=== PATIENT | female | born 1950 | race Caucasian/White ===

== ENCOUNTER 2016-12-30 16:04 | Emergency (ER) | payer MEDICARE, SELFPAY ==
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
[2016-12-30] MEDS ORDERED: Diphtheria/Tetanus Toxoids,Adult (Td) 0.5 ML SDV IM ONE (17:29)
[2016-12-31 08:17] VITALS: BP 121/70
--- NOTE | 2017-01-01 08:11 | CR ---
DATE OF SERVICE: 12/30/16 CLINICAL DATA: fall LEFT LOWER LEG: No acute fracture or dislocation. No lytic or blastic bone lesions. [id number] [facility]
--- NOTE | 2017-01-01 08:13 | CR ---
DATE OF SERVICE: 12/30/16 CLINICAL DATA: fall PA CHEST AND RIGHT RIBS: The heart size is normal. The lungs are clear. No pneumothorax. No pleural effusions. No areas of consolidation. No displaced rib fractures. IMPRESSION: No acute abnormalities. [id number] [facility]
== END 2016-12-30 17:20 | disposition home or self-care (01) ==
LOC: LB.ED 16:04
DX: S20.211A Contusion of right front wall of thorax, initial encounter (principal); M79.605 Pain in left leg; F17.210 Nicotine dependence, cigarettes, uncomplicated; F41.9 Anxiety disorder, unspecified; Z88.0 Allergy status to penicillin; Z88.5 Allergy status to narcotic agent; Z88.8 Allergy status to other drugs, medicaments and biological substances; Z79.899 Other long term (current) drug therapy; Z90.710 Acquired absence of both cervix and uterus; Z98.890 Other specified postprocedural states; V19.9XXA Pedal cyclist (driver) (passenger) injured in unspecified traffic accident, initial encounter
CPT/HCPCS: 71101-RT; 73590-LT; 90471; 90714; 99283; 99284-25

== ENCOUNTER 2018-01-19 18:56 | Emergency (ER) | payer MEDICARE ==
[2018-01-19] MEDS ORDERED: Ciprofloxacin 500 MG Tab ONE (19:10)
--- NOTE | 2018-01-25 16:12 | EDM.PDOC ---
ED HPI GENERAL MEDICAL PROBLEM - General Chief Complaint: General Stated Complaint: DIARRHEA Time Seen by Provider: 01/19/18 20:00 Source of Information: Reports: Patient History Limitations: Reports: No Limitations - History of Present Illness INITIAL COMMENTS - FREE TEXT/NARRATIVE: This is a 67yo F here for abdominal discomfort and diarrhea. Patient denies any fever or chills or other complaints. She has had bouts of diarrhea frequently. No nausea, no vomiting, no other complaints. Onset: Gradual Duration: Day(s):, Intermittent Location: Reports: Abdomen - Related Data Allergies Allergy/AdvReac Type Severity Reaction Status Date / Time lorazepam [From Ativan] Allergy Anxiety Verified 12/31/16 07:37 morphine Allergy Nausea Verified 12/31/16 07:37 Penicillins Allergy Rash Verified 12/31/16 07:37 Home Meds: Home Meds Baclofen 10 mg PO DAILY 12/30/16 [History] Gabapentin [Neurontin] 300 mg PO DAILY 12/30/16 [History] Hydrochlorothiazide 25 mg PO DAILY 12/30/16 [History] Omeprazole 20 mg PO BID 12/30/16 [History] Quinapril [Accupril] 10 mg PO DAILY 12/30/16 [History] Venlafaxine HCl [Venlafaxine ER] 75 mg PO TID 12/30/16 [History] busPIRone [Buspar] 15 mg PO BID 12/30/16 [History] oxyCODONE HCl/Acetaminophen [oxyCODONE-Acetaminophen 10-325] 1 tab PO TID PRN [History] tiZANidine HCl [Tizanidine HCl] 4 mg PO DAILY 12/30/16 [History] traZODone 50 mg PO BEDTIME 12/30/16 [History] 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: Musculoskeletal History: Reports: Back Pain, Chronic Neurological History: Reports: Headaches, Chronic Psychiatric History: Reports: Anxiety - Infectious Disease History Infectious Disease History: Reports: Chicken Pox, Influenza, Measles, Mumps - Past Surgical History GI Surgical History: Reports: Colostomy Female Surgical History: Reports: Hysterectomy Neurological Surgical History: Reports: Lumbar Spine Musculoskeletal Surgical History: Reports: Other (See Below) Other Musculoskeletal Surgeries/Procedures:: back surgery Social & Family History - Family History Family Medical History: Noncontributory - Caffeine Use Caffeine Use: Reports: Coffee, Soda ED ROS GENERAL - Review of Systems Review Of Systems: ROS reveals no pertinent complaints other than HPI. ED EXAM, GENERAL - Physical Exam Exam: See Below Exam Limited By: No Limitations General Appearance: Alert, WD/WN, No Apparent Distress Ears: Normal External Exam Nose: Normal Inspection Throat/Mouth: Normal Inspection Head: Atraumatic, Normocephalic Neck: Normal Inspection Respiratory/Chest: No Respiratory Distress, Lungs Clear Cardiovascular: Normal Peripheral Pulses, Regular Rate, Rhythm GI/Abdominal: Soft, Non-Tender, No Distention, Abnormal Bowel Sounds ( hyperactive) Extremities: Normal Inspection Neurological: Alert, Oriented, CN II-XII Intact, Normal Reflexes, No Motor/ Sensory Deficits Course - Orders/Labs/Meds Meds: Medications Discontinued Medications Generic Name Dose Route Start Last Admin Trade Name Freq PRN Reason Stop Dose Admin Ciprofloxacin 3,000 mg 01/19/18 19:10 Ciprofloxacin Hcl .ROUTE 01/19/18 19:11 .STK-MED ONE Departure - Departure Time of Disposition: 21:00 Disposition: Home, Self-Care 01 Condition: Good Clinical Impression: Diarrhea Qualifiers: Diarrhea type: unspecified type Qualified Code(s): R19.7 - Diarrhea, unspecified - Discharge Information Forms: ED Department Discharge Additional Instructions: Take Cipro 500mg 2 times a day until gone. Take Metronidazole 500mg every 8 hours. Return to clinic Sunday if not feeling better. Counseled on supportive care and management. Discussed conservative management and antibiotics use. Patient would like to try antibiotics at this time. F/u in clinic or return to ER if symptoms persist or worsen.
== END 2018-01-19 20:16 | disposition home or self-care (01) ==
LOC: LB.ED 18:56
DX: R19.7 Diarrhea, unspecified (principal); Z88.0 Allergy status to penicillin; Z88.5 Allergy status to narcotic agent; Z79.899 Other long term (current) drug therapy; Z88.8 Allergy status to other drugs, medicaments and biological substances
CPT/HCPCS: 99283; A9270

== ENCOUNTER 2018-09-30 17:27 | Emergency (ER) | payer MEDICARE ==
[2018-09-30] MEDS ORDERED: oxyCODONE 5 MG Tab ONE (17:40)
--- NOTE | 2018-10-04 16:05 | EDM.PDOC ---
ED HPI GENERAL MEDICAL PROBLEM - General Stated Complaint: depression Time Seen by Provider: 09/30/18 17:30 Source of Information: Reports: Patient History Limitations: Reports: No Limitations - History of Present Illness INITIAL COMMENTS - FREE TEXT/NARRATIVE: This is a 68yo F here for concerns of increased depression and increased pain of the joints and generalized pain. The anniversary of her daughter's recently passed 3 years and she still is grieving. Patient does admit to taking more pain meds when she is feeling down as she does not her pain gets worse. Onset: Gradual Duration: Week(s):, Getting Worse Location: Reports: Generalized - Related Data Allergies Allergy/AdvReac Type Severity Reaction Status Date / Time lorazepam [From Ativan] Allergy Anxiety Verified 12/31/16 07:37 morphine Allergy Nausea Verified 12/31/16 07:37 Penicillins Allergy Rash Verified 12/31/16 07:37 Home Meds: Home Meds Baclofen 10 mg PO DAILY 12/30/16 [History] Gabapentin [Neurontin] 300 mg PO DAILY 12/30/16 [History] Hydrochlorothiazide 25 mg PO DAILY 12/30/16 [History] Omeprazole 20 mg PO BID 12/30/16 [History] Quinapril [Accupril] 10 mg PO DAILY 12/30/16 [History] Venlafaxine HCl [Venlafaxine ER] 75 mg PO TID 12/30/16 [History] busPIRone [Buspar] 15 mg PO BID 12/30/16 [History] oxyCODONE HCl/Acetaminophen [oxyCODONE-Acetaminophen 10-325] 1 tab PO TID PRN [History] tiZANidine HCl [Tizanidine HCl] 4 mg PO DAILY 12/30/16 [History] traZODone 50 mg PO BEDTIME 12/30/16 [History] 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: Musculoskeletal History: Reports: Back Pain, Chronic Neurological History: Reports: Headaches, Chronic Psychiatric History: Reports: Anxiety - Infectious Disease History Infectious Disease History: Reports: Chicken Pox, Influenza, Measles, Mumps - Past Surgical History GI Surgical History: Reports: Colostomy Female Surgical History: Reports: Hysterectomy Neurological Surgical History: Reports: Lumbar Spine Musculoskeletal Surgical History: Reports: Other (See Below) Other Musculoskeletal Surgeries/Procedures:: back surgery Social & Family History - Family History Family Medical History: Noncontributory - Caffeine Use Caffeine Use: Reports: Coffee, Soda ED ROS GENERAL - Review of Systems Review Of Systems: ROS reveals no pertinent complaints other than HPI. ED EXAM, GENERAL - Physical Exam Exam: See Below Exam Limited By: No Limitations General Appearance: Alert, WD/WN, Mild Distress Eye Exam: Bilateral Eye: EOMI, PERRL Ears: Normal External Exam Nose: Normal Inspection Throat/Mouth: Normal Inspection Head: Atraumatic, Normocephalic Neck: Normal Inspection Respiratory/Chest: No Respiratory Distress, Lungs Clear, Normal Breath Sounds Cardiovascular: Normal Peripheral Pulses, Regular Rate, Rhythm GI/Abdominal: Normal Bowel Sounds Extremities: Normal Inspection Neurological: Alert, Oriented, Normal Cognition, Normal Gait, No Motor/Sensory Deficits Psychiatric: Depressed Mood, Tearful Skin Exam: Warm, Dry, Intact Course - Orders/Labs/Meds Meds: Medications Discontinued Medications Generic Name Dose Route Start Last Admin Trade Name Freq PRN Reason Stop Dose Admin Oxycodone HCl 30 mg 09/30/18 17:40 Oxycodone .ROUTE 09/30/18 17:41 .STK-MED ONE Departure - Departure Time of Disposition: 19:00 Disposition: Home, Self-Care 01 Condition: Good Clinical Impression: Chronic pain disorder Depression Qualifiers: Depression Type: major depressive disorder Major depression recurrence: recurrent Active/Remission status: currently active Major depression episode severity: moderate Qualified Code(s): F33.1 - Major depressive disorder, recurrent, moderate - Discharge Information Referrals: PCP,None [Primary Care Provider] - - Problem List & Annotations (1) Chronic pain disorder SNOMED Code(s): 952666792 Code(s): G89.4 - CHRONIC PAIN SYNDROME Status: Acute Priority: High (2) Depression SNOMED Code(s): 48976998 Code(s): F32.9 - MAJOR DEPRESSIVE DISORDER, SINGLE EPISODE, UNSPECIFIED Status: Acute Priority: High Qualifiers: Depression Type: major depressive disorder Major depression recurrence: recurrent Active/Remission status: currently active Major depression episode severity: moderate Qualified Code(s): F33.1 - Major depressive disorder, recurrent, moderate - Problem List Review Problem List Initiated/Reviewed/Updated: Yes - Assessment/Plan Plan: Counseled on medications and adjustment. We will increase lexapro to 20mg daily and have patient f/u in clinic in 1-2 weeks. Discussed sparing use of pain medication and given 6 tablets and counseled on strict use and no overuse. Discussed addiction and management. Patient to have Home health continue supervising medications weekly for compliance.
== END 2018-09-30 18:00 | disposition home or self-care (01) ==
LOC: LB.ED 17:27
DX: F33.1 Major depressive disorder, recurrent, moderate (principal); F41.9 Anxiety disorder, unspecified; G89.4 Chronic pain syndrome; Z88.5 Allergy status to narcotic agent; Z79.899 Other long term (current) drug therapy
CPT/HCPCS: 99284; A9270-GY

== ENCOUNTER 2019-01-30 18:01 | Emergency (ER) | payer MEDICARE, OTHER, SELFPAY ==
[2019-01-30 18:13] VITALS: BP 146/70; PULSE 63
--- NOTE | 2019-01-30 18:31 | EDM.PDOC ---
ED HPI GENERAL MEDICAL PROBLEM - General Chief Complaint: Lower Extremity Injury/Pain Stated Complaint: PAIN Time Seen by Provider: 01/30/19 18:02 Source of Information: Reports: Patient History Limitations: Reports: No Limitations - History of Present Illness INITIAL COMMENTS - FREE TEXT/NARRATIVE: This is a 68yo F here for lower left back pain with radiation down the leg to the ankle. She states it started 3-4 weeks ago and has worsened. She states the pain has gotten so bad she had to come in. She states her left knee has improved but the pain from the lower back down is unbearable. Patient did walk to the ER. Onset: Gradual Duration: Week(s):, Getting Worse Location: Reports: Back, Lower Extremity, Left Quality: Reports: Ache Severity: Moderate Improves with: Reports: None Worsens with: Reports: Movement Context: Reports: Activity left lower extremitiy Pain Score (Numeric/FACES): 10 - Related Data Allergies Allergy/AdvReac Type Severity Reaction Status Date / Time lorazepam [From Ativan] Allergy Anxiety Verified 12/31/16 07:37 morphine Allergy Nausea Verified 12/31/16 07:37 Penicillins Allergy Rash Verified 12/31/16 07:37 Home Meds: Home Meds Baclofen 10 mg PO DAILY 12/30/16 [History] Gabapentin [Neurontin] 300 mg PO DAILY 12/30/16 [History] Hydrochlorothiazide 25 mg PO DAILY 12/30/16 [History] Omeprazole 20 mg PO BID 12/30/16 [History] Quinapril [Accupril] 10 mg PO DAILY 12/30/16 [History] Venlafaxine HCl [Venlafaxine ER] 75 mg PO TID 12/30/16 [History] busPIRone [Buspar] 15 mg PO BID 12/30/16 [History] oxyCODONE HCl/Acetaminophen [oxyCODONE-Acetaminophen 10-325] 1 tab PO TID PRN [History] tiZANidine HCl [Tizanidine HCl] 4 mg PO DAILY 12/30/16 [History] traZODone 50 mg PO BEDTIME 12/30/16 [History] 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: Musculoskeletal History: Reports: Back Pain, Chronic Neurological History: Reports: Headaches, Chronic Psychiatric History: Reports: Anxiety - Infectious Disease History Infectious Disease History: Reports: Chicken Pox, Influenza, Measles, Mumps - Past Surgical History GI Surgical History: Reports: Colostomy Female Surgical History: Reports: Hysterectomy Neurological Surgical History: Reports: Lumbar Spine Musculoskeletal Surgical History: Reports: Other (See Below) Other Musculoskeletal Surgeries/Procedures:: back surgery Social & Family History - Family History Family Medical History: Noncontributory - Caffeine Use Caffeine Use: Reports: Coffee, Soda Review of Systems - Review of Systems Review Of Systems: ROS reveals no pertinent complaints other than HPI. ED EXAM, GENERAL - Physical Exam Exam: See Below Exam Limited By: No Limitations General Appearance: Alert, WD/WN, No Apparent Distress Eye Exam: Bilateral Eye: EOMI Ears: Normal External Exam Nose: Normal Inspection Throat/Mouth: Normal Inspection Head: Atraumatic, Normocephalic Neck: Normal Inspection, Supple, Non-Tender, Full Range of Motion Respiratory/Chest: No Respiratory Distress, Lungs Clear Cardiovascular: Normal Peripheral Pulses, Regular Rate, Rhythm Peripheral Pulses: 2+: Dorsalis Pedis (L), Dorsalis Pedis (R) GI/Abdominal: Normal Bowel Sounds Back Exam: Paraspinal Tenderness (with radiation to buttocks and down left lateral leg) Extremities: Normal Inspection, Normal Range of Motion Course - Vital Signs Last Recorded V/S: Last Vital Signs Temp 37.0 C 01/30/19 18:08 Pulse 63 01/30/19 18:08 Resp 16 01/30/19 18:08 BP 146/70 H 01/30/19 18:08 Pulse Ox 99 01/30/19 18:08 Departure - Departure Time of Disposition: 18:40 Disposition: Home, Self-Care 01 Condition: Good Clinical Impression: Lumbago with sciatica, left side Qualifiers: Chronicity: acute Back pain laterality: left Qualified Code(s): M54.42 - Lumbago with sciatica, left side - Discharge Information - Problem List & Annotations (1) Lumbago with sciatica, left side SNOMED Code(s): 404261274 Code(s): M54.42 - LUMBAGO WITH SCIATICA, LEFT SIDE Status: Acute Priority : High Qualifiers: Chronicity: acute Back pain laterality: left Qualified Code(s): M54.42 - Lumbago with sciatica, left side - Problem List Review Problem List Initiated/Reviewed/Updated: Yes - Assessment/Plan Plan: Counseled on supportive care and management. Discussed f/u MRI for new symptoms and worsening symptoms. Discussed current medications and management. F/u as directed in clinic and f/u with MRI Tues and Ortho appointment Tues at 1pm.
[2019-01-30] MEDS ORDERED: methylPREDNISolone Sodium Succinate 125 MG/2 ML SDV IM ONE (18:48)
[2019-01-30] MEDS ORDERED: Ketorolac 60 MG/2 ML SDV IM ONE (18:48)
[2019-01-30] MEDS ORDERED: oxyCODONE 5 MG Tab PO ONE (18:52)
[2019-01-30] MEDS ORDERED: Gabapentin 300 MG Cap PO SCH (20:00)
== END 2019-01-30 18:45 | disposition home or self-care (01) ==
LOC: LB.ED 18:01
DX: M54.42 Lumbago with sciatica, left side (principal); F41.9 Anxiety disorder, unspecified; Z79.899 Other long term (current) drug therapy; Z88.5 Allergy status to narcotic agent; Z88.0 Allergy status to penicillin; Z88.8 Allergy status to other drugs, medicaments and biological substances
CPT/HCPCS: 96372; 99282; A9270; J1885; J2930; 99283

== ENCOUNTER 2019-02-03 18:48 | Emergency (ER) | payer MEDICARE ==
[2019-02-03 19:16] VITALS: BP 136/70; PULSE 78
[2019-02-03] MEDS ORDERED: Ketorolac 60 MG/2 ML SDV IM ONE (19:23)
[2019-02-03] MEDS ORDERED: traMADol 50 MG Tab ONE (19:30)
--- NOTE | 2019-02-04 08:16 | ER ---
DATE OF SERVICE: 02/03/2019 REASON FOR EMERGENCY ROOM VISIT: Low back pain. HISTORY: This 68-year-old woman has had a history of significant troubles with her lumbar spine for several years. She came into the emergency room 5 days ago with an acute exacerbation of left lower back pain with radiation down her buttock and the outer aspect of her thigh down to the ankle. She had been experiencing these symptoms albeit to a lesser degree for 3 or 4 weeks prior to that. She denies any numbness or actual muscle weakness. Her main complaint is the pain. She was seen by Dr. Arora in the emergency room last who evaluated her and diagnosed "lumbago with sciatica." She was scheduled to have an MRI and that is set up for tomorrow. After that, she is supposed to be seeing an Orthopedic surgeon both for her knee as well as her low back and I believe that is scheduled for the following day, Sunday. When she was in last time, she received Toradol, Solu-Medrol, and was given one oxycodone tablet to take at home. Since then, she has taken ibuprofen. It is noteworthy that the patient does have a history of depression and she recently lost a daughter which has increased her symptoms of depression. She states she has had 3 previous operations on her lumbar spine. The exact nature of these is unclear to me, but she states that she had these done for "pinched nerves and crushed disks." Her last lumbar spine operation was 5 or 6 years ago and initially she did fairly well from that. PAST MEDICAL HISTORY: 1. Lumbar spine surgery as noted above. 2. Left knee problems, possible osteoarthritis versus cartilage issues. 3. Depression. 4. Hypertension. MEDICATIONS: Medications were reviewed. See EMR. They include the following, trazodone, tizanidine, venlafaxine, quinapril, omeprazole, hydrochlorothiazide, gabapentin, and baclofen. ALLERGIES: INCLUDES PENICILLIN AND ATIVAN. SHE GETS NAUSEA AND VOMITING WITH MORPHINE, THEREFORE, NOT A TRUE ALLERGY. FAMILY HISTORY: Reviewed, noncontributory. REVIEW OF SYSTEMS: Pertinent positives and negatives as listed in the HPI. PHYSICAL EXAMINATION: GENERAL: She appears to be uncomfortable lying on her right side. She is in no acute distress and she is cooperative. VITAL SIGNS: She is afebrile. Blood pressure 136/70, heart rate 78, respiratory rate 16, O2 sats 99% on room air. HEENT: Unremarkable. No scleral icterus is noted. NECK: Supple. No adenopathy. CHEST: Clear to auscultation. CARDIAC: Regular rate without murmur. ABDOMEN: Soft and nontender. No palpable masses are noted. MUSCULOSKELETAL: On examination of her spine, she does seem to have some loss of her lumbar lordosis and exaggerated thoracic kyphosis, but this is mainly a postural issue. On percussion over her spinous processes, she is not tender. She does have tenderness to palpation over her left sacroiliac region and it does produce some radiation down her left lateral hip area. This seems to be a trigger point that is reproduced on exam. Straight leg raising interestingly was negative. Muscle strength, bulk, and tone are normal and symmetrical bilaterally. Deep tendon reflexes are symmetrical. Sensation is intact to crude touch. Examination of her left knee reveals no crepitus to passive motion. I cannot detect a drawer sign or medial or lateral laxity. There is no tenderness along the joint line. She has no distal edema and her foot pulses are palpable. IMPRESSION: 1. Low back pain with tenderness over this sacroiliac region and symptoms suggestive of sciatica, but physical findings unremarkable. 2. Probable degenerative disease, left knee. 3. History of depression. 4. Hypertension, controlled. PLAN: Since she is scheduled to have an MRI tomorrow followed by visit to Orthopedics, who she tells me is going to be evaluating her knee and her lower back area. I am going to give her another shot of Toradol 60 mg IM. She is also given a prescription for tramadol 50 mg, dispense #10, 1-2 q.4 hours p.r.n. pain. She was also recommended that she apply heat or cold over the area where she seems to be most sore to see depending on which one seems to help more. I encouraged her to try to continue to be as active as possible within reason. Walking is a good thing and moving about is good, even though she may be inclined to lay around a lot. She understands and agrees with this plan. All questions were answered. INNA /[id number]
== END 2019-02-03 19:49 | disposition home or self-care (01) ==
LOC: LB.ED 18:48
DX: M54.5 Low back pain (principal); I10 Essential (primary) hypertension; F32.9 Major depressive disorder, single episode, unspecified; Z88.0 Allergy status to penicillin; Z88.8 Allergy status to other drugs, medicaments and biological substances; Z88.5 Allergy status to narcotic agent
CPT/HCPCS: 96372; 99283; A9270; J1885

== ENCOUNTER 2019-02-16 14:21 | Emergency (ER) | payer MEDICARE ==
[2019-02-16 14:32] VITALS: BP 122/63; PULSE 74
[2019-02-16] MEDS ORDERED: Ketorolac 30 MG/ML SDV IM ONE (15:31)
--- NOTE | 2019-02-16 15:43 | EDM.PDOC ---
ED HPI GENERAL MEDICAL PROBLEM - General Chief Complaint: Lower Extremity Injury/Pain Stated Complaint: LEFT LEG PAIN Time Seen by Provider: 02/16/19 15:00 Source of Information: Reports: Patient History Limitations: Reports: No Limitations - History of Present Illness INITIAL COMMENTS - FREE TEXT/NARRATIVE: According to patient she claims she has been having pain in her right lower extremity for past 5 wks now. She describes her pain is over the left buttock and radiates into the left anterior thigh and into the lateral and anterior leg and raps into lower leg. Pain does get worse. Rates her pain at 10/10. Pt ahs been on oxycodone 10mg 3 times daily and gabapentin. Pt claims she has had 3 spinal surgeries and her last one was 5 years ago. No incontinence of stool or urine. No saddle numbness. No weakness in the extremities. Pt has been in the emergency room several times over the past 1 month. Received Toradol, solumedrol and tramadol on different occasions. Duration: Week(s): (5 weeks) Location: Reports: Back, Lower Extremity, Left Quality: Reports: Ache Severity: Moderate Improves with: Reports: None Worsens with: Reports: None Associated Symptoms: Denies: Confusion, Chest Pain, Cough, Diaphoresis, Fever/ Chills, Nausea/Vomiting, Rash, Seizure, Shortness of Breath, Syncope, Weakness Left Leg Pain Score (Numeric/FACES): 8 - Related Data Allergies Allergy/AdvReac Type Severity Reaction Status Date / Time lorazepam [From Ativan] Allergy Anxiety Verified 02/16/19 14:30 morphine Allergy Nausea Verified 02/16/19 14:30 Penicillins Allergy Rash Verified 02/16/19 14:30 Home Meds: Home Meds Gabapentin [Neurontin] 300 mg PO BID 12/30/16 [History] Hydrochlorothiazide 25 mg PO DAILY 12/30/16 [History] Omeprazole 20 mg PO BID 12/30/16 [History] Quinapril [Accupril] 10 mg PO DAILY 12/30/16 [History] oxyCODONE HCl/Acetaminophen [oxyCODONE-Acetaminophen 10-325] 1 tab PO TID PRN [History] traZODone 50 mg PO BEDTIME 12/30/16 [History] Cholecalciferol (Vitamin D3) [Vitamin D3] 5,000 unit PO DAILY 02/16/19 [History] ClonazePAM [KlonoPIN] 0.5 mg PO BID PRN 02/16/19 [History] Escitalopram Oxalate 20 mg PO DAILY 02/16/19 [History] L. Acidophilus/Pectin, [place] [Probiotic Acidophil-Pectin Cap] 1 cap PO DAILY [History] Propranolol HCl [Propranolol] 60 mg PO DAILY 02/16/19 [History] atorvaSTATin Calcium [Atorvastatin Calcium] 80 mg PO QPM 02/16/19 [History] busPIRone HCl [busPIRone] 30 mg PO BID 02/16/19 [History] Past Medical History [employer] History: Reports: Musculoskeletal History: Reports: Back Pain, Chronic Neurological History: Reports: Headaches, Chronic Psychiatric History: Reports: Anxiety - Infectious Disease History Infectious Disease History: Reports: Chicken Pox, Influenza, Measles, Mumps - Past Surgical History GI Surgical History: Reports: Colostomy Female Surgical History: Reports: Hysterectomy Neurological Surgical History: Reports: Lumbar Spine Musculoskeletal Surgical History: Reports: Other (See Below) Other Musculoskeletal Surgeries/Procedures:: back surgery Social & Family History - Family History Family Medical History: Noncontributory - Caffeine Use Caffeine Use: Reports: Coffee, Soda Review of Systems - Review of Systems Review Of Systems: See Below Constitutional: Denies: Chills, Fever Eyes: Denies: Blindness, Decreased Acuity, Foreign Body Sensation, Photophobia, Previous Injury, Vision Change Ears: Denies: Dizziness, Pain Nose: Denies: Pain Mouth/Throat: Denies: Pain Respiratory: Denies: Cough, Sputum Cardiovascular: Denies: Chest Pain, Edema GI/Abdominal: Denies: Abdominal Pain, Nausea, Vomiting Genitourinary: Denies: Dysuria, Hematuria Musculoskeletal: Reports: Back Pain, Leg Pain. Denies: Joint Pain, Joint Swelling Skin: Denies: Bruising, Pruritis, Rash Neurological: Denies: Confusion, Dizziness, Headache, Numbness, Tingling ED EXAM, GENERAL - Physical Exam Exam: See Below Exam Limited By: No Limitations General Appearance: Alert, WD/WN, No Apparent Distress, Other (Pt rates her pain at 10/10 , but she does appear comfortable in the examination bed. She quickly gets up from lying down position and tries to expalins me the pain.) Eye Exam: Bilateral Eye: EOMI, PERRL Ears: Normal External Exam, Normal Canal, Hearing Grossly Normal, Normal TMs Ear Exam: Bilateral Ear: Auricle Normal, Canal Normal, TM normal Nose: Normal Inspection, Normal Mucosa, No Blood Throat/Mouth: Normal Inspection, Normal Lips, Normal Teeth, Normal Gums, Normal Oropharynx, Normal Voice, No Airway Compromise Head: Atraumatic, Normocephalic Neck: Normal Inspection, Supple, Non-Tender, Full Range of Motion Respiratory/Chest: No Respiratory Distress, Lungs Clear, Normal Breath Sounds, No Accessory Muscle Use, Chest Non-Tender Cardiovascular: Normal Peripheral Pulses Back Exam: Full Range of Motion, Other (Pt does have scar over the lumbar spine form previous spinal surgery). No: Paraspinal Tenderness, Vertebral Tenderness Course - Vital Signs Text/Narrative:: Pt pain description appear like left L4 radicular pain. Her MRI does show laminectomy changes at L3-4 and also some arthritic changes in the spine. No acute injuries or nerve compression noted. I did try to explain to patient that she does appear to have L4 radicular pain. Pain medication might not completely help with the pain. She might need to have quick tapering dose of prednisone and some NSIADs to help with inflammation of the nerve. Which might help with her pain symptoms. Pt claims she will not take any steroid as steroid killed her sister. She wants shot of toradol ( NSAID) which helps with her pain and 2 tablet of tramadol per day along with her present pain medication. She prefers to followup with her primary care provider. I did agree with patient. She does not seem to have any acute radicular or spinal compression symptoms.Pt advised to followup with her primary care provider in 2 days. Last Recorded V/S: Last Vital Signs Temp 98.6 F 02/16/19 14:30 Pulse 74 02/16/19 14:30 Resp 18 02/16/19 14:30 BP 122/63 02/16/19 14:30 Pulse Ox 99 02/16/19 14:30 - Orders/Labs/Meds Meds: Medications Discontinued Medications Generic Name Dose Route Start Last Admin Trade Name Freq PRN Reason Stop Dose Admin Ketorolac Tromethamine 30 mg 02/16/19 15:31 Toradol IM 02/16/19 15:32 ONETIME ONE Departure - Departure Time of Disposition: 16:00 Disposition: Home, Self-Care 01 Condition: Fair Clinical Impression: Lumbar radiculopathy - Discharge Information *PRESCRIPTION DRUG MONITORING PROGRAM REVIEWED*: Not Applicable *COPY OF PRESCRIPTION DRUG MONITORING REPORT IN PATIENT LUZ: Not Applicable - Problem List & Annotations (1) Lumbar radiculopathy SNOMED Code(s): 496447974 Code(s): M54.16 - RADICULOPATHY, LUMBAR REGION Status: Acute Current Visit: Yes - Problem List Review Problem List Initiated/Reviewed/Updated: Yes - Assessment/Plan Assessment:: Left L4 radiculopathy Plan: Pt pain description appear like left L4 radicular pain. Her MRI does show laminectomy changes at L3-4 and also some arthritic changes in the spine. No acute injuries or nerve compression noted. I did try to explain to patient that she does appear to have L4 radicular pain. Pain medication might not completely help with the pain. She might need to have quick tapering dose of prednisone and some NSIADs to help with inflammation of the nerve. Which might help with her pain symptoms. Pt claims she will not take any steroid as steroid killed her sister. She wants shot of toradol ( NSAID) which helps with her pain and 2 tablet of tramadol per day along with her present pain medication. She prefers to followup with her primary care provider. I did agree with patient. She does not seem to have any acute radicular or spinal compression symptoms.Pt advised to followup with her primary care provider in 2 days.
[2019-02-16] MEDS ORDERED: traMADol 50 MG Tab ONE (15:45)
== END 2019-02-16 15:49 | disposition home or self-care (01) ==
LOC: LB.ED 14:21
DX: M54.16 Radiculopathy, lumbar region (principal); F41.9 Anxiety disorder, unspecified; Z88.0 Allergy status to penicillin; Z88.5 Allergy status to narcotic agent; Z88.8 Allergy status to other drugs, medicaments and biological substances; Z79.899 Other long term (current) drug therapy; Z90.710 Acquired absence of both cervix and uterus
CPT/HCPCS: 96372; 99283; A9270; J1885

== ENCOUNTER 2019-03-02 19:02 | Emergency (ER) | payer MEDICARE ==
[2019-03-02] MEDS ORDERED: methylPREDNISolone Sodium Succinate 125 MG/2 ML SDV IM ONE (19:46)
[2019-03-02] MEDS ORDERED: methylPREDNISolone Sodium Succinate 125 MG/2 ML SDV ONE (19:55)
[2019-03-02 23:09] VITALS: BP 157/72; PULSE 62
--- NOTE | 2019-03-03 02:17 | ER ---
HISTORY OF PRESENT ILLNESS: A 68-year-old lady here, requesting something for back pain. She has had low back pain with radicular pain down the left leg. This has been ongoing for several months. The patient is getting pain medications through Dr. Arora and Catarina Villafuerte. It looks like she last had 120 oxycodone filled on February 17. The patient tells me that her back pain is not covered by these 4 tablets. Therefore, she took a few more in the last couple of days. She gets her pain medications distributed to her twice a week and she is out of her pain medications that should have lasted her until Sunday. The patient is wondering what she can get to carry her over. She also takes Toradol, she tells me, twice a day and she is on gabapentin b.i.d. The patient tells me that the pain keeps her up at night and she does not know what to do. She plans on seeing a neurologist in March. OBJECTIVE: GENERAL APPEARANCE: The patient is awake and alert. No respiratory distress. She is lying on the exam table quietly. VITAL SIGNS: Reviewed as listed. BACK: Examining the patient's low back reveals pain is involving the lower lumbar spine on the midline and left paraspinal muscle area. SKIN: Intact without swelling or bruising. DIAGNOSIS: Chronic low back pain. TREATMENT PLAN: I advised the patient that I cannot give her any narcotics. The best thing I would offer her would be Solu-Medrol 125 mg IM. The patient agrees to take this and this was given by nursing staff. I advised the patient to contact Dr. Arora's office in the morning and discuss her situation with her pain medications. He is her primary provider and should be the only one at this point giving her narcotics for this back pain. The patient has no further questions. CRS/MODL /[id number]
== END 2019-03-02 20:11 | disposition home or self-care (01) ==
LOC: LB.ED 19:02
DX: G89.29 Other chronic pain (principal); M54.5 Low back pain
CPT/HCPCS: 96372; 99283; J2930

== ENCOUNTER 2019-08-25 16:51 | Emergency (ER) | payer MEDICARE ==
[2019-08-25 17:25] VITALS: BP 105/71; PULSE 79
--- NOTE | 2019-08-25 17:35 | EDM.PDOC ---
ED HPI GENERAL MEDICAL PROBLEM - General Chief Complaint: General Stated Complaint: HEADACHE Time Seen by Provider: 08/25/19 17:15 Source of Information: Reports: Patient, RN History Limitations: Reports: No Limitations - History of Present Illness INITIAL COMMENTS - FREE TEXT/NARRATIVE: 69 yo female presents with pain to left knee, ankle and hip. Pain is worse to the left knee and rates pain "8" and 7.5 to hip and ankle. States no injury to the areas. She is alert, oriented and wants to feel better. States depression from her loss of her daughter, several years ago. States she wants to feel better and wants to be out with other people, but can't get herself out of the house to improve this. States she did her PCP on her way here and recommended to have a Toradol shot. Left Lower Knee Pain Score (Numeric/FACES): 8 - Related Data Allergies Allergy/AdvReac Type Severity Reaction Status Date / Time lorazepam [From Ativan] Allergy Anxiety Verified 03/02/19 23:03 morphine Allergy Nausea Verified 03/02/19 23:03 Penicillins Allergy Rash Verified 03/02/19 23:03 Home Meds: Home Meds Gabapentin [Neurontin] 300 mg PO BID 12/30/16 [History] Hydrochlorothiazide 25 mg PO DAILY 12/30/16 [History] Omeprazole 20 mg PO BID 12/30/16 [History] Quinapril [Accupril] 10 mg PO DAILY 12/30/16 [History] oxyCODONE HCl/Acetaminophen [oxyCODONE-Acetaminophen 10-325] 1 tab PO TID PRN [History] traZODone 50 mg PO BEDTIME 12/30/16 [History] Cholecalciferol (Vitamin D3) [Vitamin D3] 5,000 unit PO DAILY 02/16/19 [History] ClonazePAM [KlonoPIN] 0.5 mg PO BID PRN 02/16/19 [History] Escitalopram Oxalate 20 mg PO DAILY 02/16/19 [History] L. Acidophilus/Pectin, [place] [Probiotic Acidophil-Pectin Cap] 1 cap PO DAILY [History] Propranolol HCl [Propranolol] 60 mg PO DAILY 02/16/19 [History] atorvaSTATin Calcium [Atorvastatin Calcium] 80 mg PO QPM 02/16/19 [History] busPIRone HCl [busPIRone] 30 mg PO BID 02/16/19 [History] Past Medical History HEENT History: Reports: Hard of Hearing, Impaired Vision Cardiovascular History: Reports: High Cholesterol, Hypertension Gastrointestinal History: Reports: GERD [employer] History: Reports: Musculoskeletal History: Reports: Back Pain, Chronic Neurological History: Reports: Headaches, Chronic Psychiatric History: Reports: Addiction, Anxiety, Depression - Infectious Disease History Infectious Disease History: Reports: Chicken Pox, Influenza, Measles, Mumps - Past Surgical History Female Surgical History: Reports: Hysterectomy Neurological Surgical History: Reports: Lumbar Spine Musculoskeletal Surgical History: Reports: Other (See Below) Other Musculoskeletal Surgeries/Procedures:: back surgery Social & Family History - Family History Family Medical History: Noncontributory - Caffeine Use Caffeine Use: Reports: Coffee Review of Systems - Review of Systems Review Of Systems: See Below Constitutional: Reports: No Symptoms Eyes: Denies: Blurred Vision, Decreased Acuity, Photophobia Ears: Denies: Dizziness, Pain, Purulent Discharge Nose: Reports: No Symptoms Mouth/Throat: Reports: No Symptoms Respiratory: Reports: No Symptoms Cardiovascular: Reports: No Symptoms GI/Abdominal: Reports: No Symptoms Musculoskeletal: Reports: Other (left knee, hip and ankle pain) Skin: Denies: Bruising, Pruritis, Rash Neurological: Reports: No Symptoms Psychiatric: Reports: Depression ED EXAM, GENERAL - Physical Exam Exam: See Below Exam Limited By: No Limitations General Appearance: Alert, No Apparent Distress Ears: Hearing Grossly Normal Nose: Normal Inspection Throat/Mouth: Normal Voice, No Airway Compromise Head: Atraumatic, Normocephalic Neck: Non-Tender, Full Range of Motion Respiratory/Chest: Lungs Clear, Normal Breath Sounds Cardiovascular: Regular Rate, Rhythm, No Edema Back Exam: Full Range of Motion Extremities: Other (pain worsens with lying on the leg) Neurological: Alert, Oriented, Normal Cognition Psychiatric: Normal Affect, Depressed Mood Skin Exam: Warm, Dry, Normal Color Course - Vital Signs Last Recorded V/S: Last Vital Signs Temp 98.6 F 08/25/19 17:23 Pulse 79 08/25/19 17:23 Resp 16 08/25/19 17:23 BP 105/71 08/25/19 17:23 Pulse Ox 100 08/25/19 17:23 - Orders/Labs/Meds Meds: Medications Discontinued Medications Generic Name Dose Route Start Last Admin Trade Name Dorothy PRN Reason Stop Dose Admin Ketorolac Tromethamine 30 mg 08/25/19 17:28 08/25/19 17:40 Toradol IM 08/25/19 17:29 30 mg ONETIME ONE Administration Ketorolac Tromethamine Confirm 08/25/19 17:44 Toradol Administered 08/25/19 17:45 Dose 30 mg .ROUTE .STK-MED ONE Departure - Departure Time of Disposition: 17:49 Disposition: Home, Self-Care 01 Condition: Good Clinical Impression: Chronic knee pain Depression Qualifiers: Depression Type: major depressive disorder Major depression recurrence: recurrent Active/Remission status: currently active Major depression episode severity: moderate Qualified Code(s): F33.1 - Major depressive disorder, recurrent, moderate - Discharge Information *PRESCRIPTION DRUG MONITORING PROGRAM REVIEWED*: Not Applicable *COPY OF PRESCRIPTION DRUG MONITORING REPORT IN PATIENT LUZ: Not Applicable Instructions: Knee Pain, Adult, Chronic Back Pain, [id number] Referrals: Rudy Arora MD [Primary Care Provider] - Forms: ED Department Discharge Care Plan Goals: Follow up with DR Arora on Sunday as previously scheduled. [facility] to [facility] if interested. Call with any questions or concerns. Sepsis Event Note - Evaluation Sepsis Screening Result: No Definite Risk - Focused Exam Vital Signs: Vital Signs Temp Pulse Resp BP Pulse Ox 08/25/19 17:23 98.6 F 79 16 105/71 100 Date Exam was Performed: 08/25/19 Time Exam was Performed: 22:27 - Assessment/Plan Plan: Chronic knee pain: Toradol IM ordered. Recommend to F/U with PCP for knee pain. Continue with PH medication set-up. Depression: Recommend volunteering at long-term, school or library if tolerated. Continue with medication and use of Vit D, aromatherapy, "happy Light" and try to get out of home for socializing. F/U in clinic as scheduled
[2019-08-25] MEDS: Ketorolac 30 MG/ML SDV IM ONE (17:40)
[2019-08-25] MEDS ORDERED: Ketorolac 30 MG/ML SDV ONE (17:44)
== END 2019-08-25 17:49 | disposition home or self-care (01) ==
LOC: LB.ED 16:51
DX: G89.29 Other chronic pain (principal); M25.562 Pain in left knee; F33.1 Major depressive disorder, recurrent, moderate; E78.00 Pure hypercholesterolemia, unspecified; I10 Essential (primary) hypertension; K21.9 Gastro-esophageal reflux disease without esophagitis; F41.9 Anxiety disorder, unspecified; Z88.5 Allergy status to narcotic agent; Z88.0 Allergy status to penicillin; Z88.8 Allergy status to other drugs, medicaments and biological substances; Z79.899 Other long term (current) drug therapy
CPT/HCPCS: 96372; 99283; J1885

== ENCOUNTER 2019-09-08 14:21 | Emergency (ER) | payer MEDICARE ==
--- NOTE | 2019-09-08 17:45 | ER ---
REASON FOR EMERGENCY ROOM VISIT: 1. Opiate addiction. 2. Chronic pain. 3. Depression, situational. HISTORY: This 69-year-old woman comes in accompanied by her manager social responsibility (Alise Fulton, EUNICE, RN). The patient has had chronic pain for at least 8 to 10 years because of herniated discs. She has seen a surgeon for this, and they are currently contemplating surgery. Unfortunately, she is well aware, she has required chronic oxycodone for many years of this time to the extent that she is now under a pain contract with Dr. Arora. Her manager social responsibility, Deacon Kirstin, is the one who gives her pain pill allotment, and she is on a strict budget of 35 oxycodone tablets per week (5 tablets per day). Each oxycodone tablet contains 10 mg of oxycodone. Evidently, she frequently needs to take more than the planned 5 tablets per day. Therefore, according to the agreement, she is able to borrow from the next week's allotment but then has to budget the remaining pain pills. This is the basics of the arrangement she has with Dr. Arora, and so far, it has worked fairly well. The patient is very forthright and fully aware of her opiate addiction problem. A great deal of time was spent discussing the physiology behind addiction and the notion of tolerance, etc. She understands this very well. Additionally, she has had depression that has tended to wax and wane, and it has been more significant since the of her daughter 4 years ago. Her daughter evidently due to excessive Tylenol use as well as alcohol. The patient still admits to grieving over this, and her depression has been triggered to a large extent by the of her daughter combined with narcotic dependence. She has found that when she is trying to stretch out periods of time between her oxycodone tablets that she gets a lot of symptoms of withdrawal consisting of increased body aches, bone pain, sometimes diarrhea with insomnia and mood swings. Today, it seems to be a worse day for her than usual with some emotional lability and increased depression, but she is experiencing withdrawal symptoms because she has run out of her pain medications and is unable to take any more without physician's permission to borrow from the next days. Allotment of oxycodone. With regard to her back pain, this has been a chronic problem. It is largely limited to the lower back area and is bilateral in nature. She is able to ambulate, but with prolonged ambulation, her low back pain seems to worsen. She does occasionally get pain that radiates down the back of her leg with this. She has had no muscle weakness or paralysis or numbness. She also has chronic knee pain, which seems to be more osteoarthritis in nature. Additionally, lately, she has had some fullness and discomfort in her right ear and only recently just completed a course of azithromycin for what was felt to be otitis media. She would like to have this checked as she still is having some sensation of fullness and mild discomfort in her right ear. She denies any cough or respiratory symptoms. She has not had any nausea or vomiting. PAST MEDICAL HISTORY: To summarize: 1. Opiate addiction. 2. Chronic low back pain. 3. Depression. 4. Chronic knee pain. ALLERGIES: TO LORAZEPAM, MORPHINE, AND PENICILLIN. MEDICATIONS: Reviewed and include the followin. Vitamins. 2. Aspirin. 3. Buspirone 30 mg p.o. b.i.d. 4. Clonazepam 0.5 mg p.o. b.i.d. 5. Escitalopram oxalate 20 mg p.o. daily. 6. Acidophilus. 7. Hydrochlorothiazide 25 mg p.o. daily. 8. Gabapentin 300 mg p.o. b.i.d. 9. Propranolol 60 mg p.o. daily. 10.Omeprazole 20 mg p.o. b.i.d. 11.Quinapril 2 mg p.o. daily. 12.Atorvastatin 80 mg p.o. daily. 13.Trazodone 50 mg p.o. at bedtime p.r.n. 14.Oxycodone with acetaminophen 10/325, 1 p.o. 5 times daily p.r.n. (see above). REVIEW OF SYSTEMS: Pertinent positives and negatives as listed above. PHYSICAL EXAMINATION: GENERAL: She is a pleasant woman who is in no acute distress. She does make good eye contact, and her mood is appropriate. VITAL SIGNS: She is afebrile. Pulse rate of 67, blood pressure 122/74, respirations 18, O2 saturations 98% on room air. HEENT: I was able to visualize both TMs, and they were normal. Oropharynx is normal. There is no scleral icterus or conjunctivitis. NECK: Supple. No adenopathy. CHEST: Clear to auscultation with no wheezes, rhonchi, or rales and good air exchange bilaterally. CARDIAC: Regular rate without murmur. ABDOMEN: Soft and nontender. No hepatosplenomegaly. No masses. EXTREMITIES: Lower back, she does have some tenderness to palpation over the left paraspinal area close to the left sacroiliac joint. There may be some increased muscle spasm here. There is minimal tenderness to percussion over the lumbar spine area. Straight leg raising is negative bilaterally. Muscle strength, bulk, and tone are normal bilaterally in both lower extremities. Her deep tendon reflexes are brisk but symmetrical bilaterally. There is no numbness to crude touch. NEUROLOGIC: See above. IMPRESSION: 1. Opiate dependence. 2. Chronic pain. 3. Depression. 4. Recent otitis media, resolved. PLAN: I gave permission for them to use up 4 oxycodone tablets, to be taken from her Sunday to setup. Her manager social responsibility, Alise Fulton, will allow her to take 2 additional tablets today. She will be following up with her provider Dr. Arora later on this week or next week. ALTON/ASPEN /[id number]
== END 2019-09-08 15:52 | disposition home or self-care (01) ==
LOC: LB.ED 14:21
CPT/HCPCS: 99283

== ENCOUNTER 2020-03-18 20:38 | Emergency (ER) | payer MEDICARE ==
[2020-03-18] MEDS ORDERED: diazePAM 5 MG/ML MDV IV ONE (20:59)
[2020-03-18] MEDS ORDERED: Glucagon,Human Recombinant 1 MG Vial IM ONE (21:00)
[2020-03-18] MEDS ORDERED: Glucagon,Human Recombinant 1 MG Vial IVPUSH ONE (21:18)
[2020-03-18 21:40] VITALS: BP 132/62; PULSE 73
--- NOTE | 2020-03-18 21:44 | EDM.PDOC ---
ED HPI GENERAL MEDICAL PROBLEM - General Chief Complaint: ENT Problem Stated Complaint: FB in Throat Time Seen by Provider: 03/18/20 21:15 Source of Information: Reports: Patient History Limitations: Reports: No Limitations - History of Present Illness INITIAL COMMENTS - FREE TEXT/NARRATIVE: Patient eating steak and on second bite the piece of steak got caught in her esophagus just below her larynx. Has had multiple episodes of this in past and reports having a "crook" in her esophagus. Has had to have endoscopy several times but states this happens several times a month and she usually can get the food FB to "come UP" Onset: Today, Sudden Onset Date: 03/18/20 Onset Time: 01:00 Duration: Hour(s):, Constant Location: Reports: Other (JUst below larynx) Quality: Reports: Same as Previous Episode Improves with: Reports: None Worsens with: Reports: None Associated Symptoms: Denies: Confusion, Chest Pain, Cough, Nausea/Vomiting Treatments EMERGENCY CARE ATTENDANT: Reports: Other (see below) (Tried to drink water at home but unable to swallow and water comes back up) - Related Data Allergies Allergy/AdvReac Type Severity Reaction Status Date / Time lorazepam [From Ativan] Allergy Anxiety Verified 03/02/19 23:03 morphine Allergy Nausea Verified 03/02/19 23:03 Penicillins Allergy Rash Verified 03/02/19 23:03 Home Meds: Home Meds Gabapentin [Neurontin] 300 mg PO BID 12/30/16 [History] Hydrochlorothiazide 25 mg PO DAILY 12/30/16 [History] Omeprazole 20 mg PO BID 12/30/16 [History] oxyCODONE HCl/Acetaminophen [oxyCODONE-Acetaminophen 10-325] 1 tab PO TID PRN 12/30/16 [History] traZODone 50 mg PO BEDTIME 12/30/16 [History] Cholecalciferol (Vitamin D3) [Vitamin D3] 5,000 unit PO DAILY 02/16/19 [History] ClonazePAM [KlonoPIN] 0.5 mg PO BID PRN 02/16/19 [History] Escitalopram Oxalate 20 mg PO DAILY 02/16/19 [History] L. Acidophilus/Pectin, Nile [Probiotic Acidophil-Pectin Cap] 1 cap PO DAILY 02/16/19 [History] Propranolol HCl [Propranolol] 60 mg PO DAILY 02/16/19 [History] atorvaSTATin Calcium [Atorvastatin Calcium] 80 mg PO QPM 02/16/19 [History] busPIRone HCl [busPIRone] 30 mg PO BID 02/16/19 [History] Aspirin [Halfprin] 81 mg PO DAILY 09/08/19 [History] Quinapril [Accupril] 2 tab PO DAILY 09/08/19 [History] Vitamin B Complex 2 cap PO DAILY 09/08/19 [History] Past Medical History HEENT History: Reports: Hard of Hearing, Impaired Vision, Otitis Media Cardiovascular History: Reports: High Cholesterol, Hypertension Gastrointestinal History: Reports: GERD NURSING CARE ATTENDANT History: Reports: Musculoskeletal History: Reports: Back Pain, Chronic Neurological History: Reports: Headaches, Chronic Psychiatric History: Reports: Addiction, Anxiety, Depression - Infectious Disease History Infectious Disease History: Reports: Chicken Pox, Influenza, Measles, Mumps - Past Surgical History Other HEENT Surgeries/Procedures: wears glasses Female Surgical History: Reports: Hysterectomy Neurological Surgical History: Reports: Lumbar Spine Musculoskeletal Surgical History: Reports: Other (See Below) Other Musculoskeletal Surgeries/Procedures:: back surgery Social & Family History - Family History Family Medical History: Noncontributory - Tobacco Use Smoking Status *Q: Unknown Ever Smoked - Caffeine Use Caffeine Use: Reports: Coffee, Soda ED ROS GENERAL - Review of Systems Review Of Systems: See Below Constitutional: Denies: Fever, Chills, Malaise Respiratory: Reports: No Symptoms Cardiovascular: Denies: Chest Pain, Palpitations GI/Abdominal: Denies: Abdominal Pain, Black Stool, Diarrhea, Nausea, Vomiting : Reports: No Symptoms Psychiatric: Reports: Anxiety ED EXAM, GI/ABD - Physical Exam Exam: See Below Exam Limited By: No Limitations General Appearance: Alert, Mild Distress Ears: Normal External Exam Nose: Normal Inspection Throat/Mouth: Normal Inspection Head: Atraumatic, Normocephalic Neck: Normal Inspection, Supple, Non-Tender, Full Range of Motion Respiratory/Chest: No Respiratory Distress, Lungs Clear, Normal Breath Sounds, No Accessory Muscle Use, Chest Non-Tender Cardiovascular: Normal Peripheral Pulses GI/Abdominal Exam: Soft, Non-Tender Course - Vital Signs Text/Narrative:: Attempted to have steak pass with use of glucagon 1 mg x2 approximately 20 minutes apart without success Valium 2 mg IV x 2 doses also used with some improvement in anxiety . NO passage of food FB Last Recorded V/S: Last Vital Signs Temp 97.2 F 03/18/20 20:40 Pulse 73 03/18/20 20:40 Resp 18 03/18/20 20:40 BP 132/62 03/18/20 20:40 Pulse Ox 96 03/18/20 20:40 - Orders/Labs/Meds Meds: Medications Discontinued Medications Generic Name Dose Route Start Last Admin Trade Name Dorothy PRN Reason Stop Dose Admin Diazepam 2 mg 03/18/20 20:59 03/18/20 21:00 Valium IV 03/18/20 21:00 2 mg ONETIME ONE Administration Diazepam 2 mg 03/18/20 21:17 03/18/20 21:18 Valium IVPUSH 03/18/20 21:18 2 mg ONETIME ONE Administration Glucagon 1 mg 03/18/20 21:00 03/18/20 21:00 Glucagen IM 03/18/20 21:01 1 mg ONETIME ONE Administration Glucagon 1 mg 03/18/20 21:18 03/18/20 21:25 Glucagen IVPUSH 03/18/20 21:19 1 mg ONETIME ONE Administration Departure - Departure Time of Disposition: 22:10 Disposition: DC/Tfer to Acute Hospital 02 Condition: Good Clinical Impression: Obstruction of esophagus due to food impaction - Discharge Information *PRESCRIPTION DRUG MONITORING PROGRAM REVIEWED*: Not Applicable *COPY OF PRESCRIPTION DRUG MONITORING REPORT IN PATIENT LUZ: Not Applicable Forms: ED Department Discharge Additional Instructions: You are being transferred to [facility] for further treatment of the esophageal Foreign body/steak. YOu most likely will have endoscopic treatment to remove or pass FB down into your stomach as you have had in the past Dr. Zheng ED physician accepted patient in transfer to [place] Sepsis Event Note (ED) - Focused Exam Vital Signs: Vital Signs Temp Pulse Resp BP Pulse Ox 03/18/20 20:40 97.2 F 73 18 132/62 96
== END 2020-03-18 23:01 ==
LOC: LB.ED 20:38
DX: T18.128A Food in esophagus causing other injury, initial encounter (principal); E78.00 Pure hypercholesterolemia, unspecified; I10 Essential (primary) hypertension; K21.9 Gastro-esophageal reflux disease without esophagitis; F41.9 Anxiety disorder, unspecified; F32.9 Major depressive disorder, single episode, unspecified; Z88.8 Allergy status to other drugs, medicaments and biological substances; Z88.5 Allergy status to narcotic agent; Z88.0 Allergy status to penicillin; Z79.899 Other long term (current) drug therapy; Z20.828 Contact with and (suspected) exposure to other viral communicable diseases
CPT/HCPCS: 96372; 96374; 96375; 99284; J1610; J3360; U0002

== ENCOUNTER 2020-04-16 09:12 | Day surgery (SDC) | payer MEDICARE ==
[~2020-04-16 09:12] MED LIST: Metoclopramide 10 MG/2 ML SDV IV PRN; Sodium Chloride 0.9% 1,000 ML IV SCH
[2020-04-16] MEDS ORDERED: Propofol 1,000 MG/100 ML SDV ONE (13:45)
[2020-04-16 14:31] VITALS: BP 121/61; PULSE 66
--- NOTE | 2020-04-16 15:10 | OR ---
DATE OF OPERATION: 04/16/2020 SURGEON: Wyatt Shelton MD PREOPERATIVE DIAGNOSIS: Surveillance colonoscopy. POSTOPERATIVE DIAGNOSIS: Surveillance colonoscopy. PROCEDURE: Colonoscopy with polypectomy and mucosal biopsy. ANESTHESIA: MAC. ESTIMATED BLOOD LOSS: Minimal. COMPLICATIONS: None. INDICATION FOR THE PROCEDURE: The patient is a 69-year-old female here today for surveillance colonoscopy. Last scope was 5-6 years ago, had some polyps per patient. Otherwise, she has had some chronic diarrhea over the past year. Also some intermittent left lower quadrant pain. The patient is brought to the OR today for colonoscopy. DESCRIPTION OF PROCEDURE: Informed consent was obtained from the patient. The patient was taken to the operating room and placed on table in the left lateral decubitus position. Monitored anesthesia care was administered. Digital rectal exam performed, was normal. Colonoscope then advanced through the anus directed toward the cecum. Cecum was reached and identified by appendiceal orifice and ileocecal valve. Colonoscope then slowly withdrawn. She did have a few small diverticula noted throughout the colon and also a small semipedunculated polyp in the sigmoid colon. This was removed with hot snare polypectomy. Blood loss was minimal. She also had some few scattered areas of mild mucosal inflammation in the sigmoid. Biopsies of this were taken with cold forceps. The colonoscope then further withdrawn. Rectum was also otherwise unremarkable. Colonoscope then fully withdrawn. FINDINGS: Sigmoid polyp, minimal sigmoid mucosal inflammation as well as diverticulosis. RECOMMENDATIONS: We will follow up on polyp pathology as well as mucosal biopsy pathology. Otherwise, we would recommend repeat surveillance colonoscopy in 5 years. LEONIDES/ASPEN /[id number] VINCENT
== END 2020-04-16 15:40 | disposition home or self-care (01) ==
LOC: LB.SDS 09:12
PROVIDERS: ATTEND Surgery
DX: Z12.11 Encounter for screening for malignant neoplasm of colon (principal); D12.5 Benign neoplasm of sigmoid colon; K57.30 Diverticulosis of large intestine without perforation or abscess without bleeding; K52.9 Noninfective gastroenteritis and colitis, unspecified; I10 Essential (primary) hypertension; F17.200 Nicotine dependence, unspecified, uncomplicated; H61.20 Impacted cerumen, unspecified ear; Z88.0 Allergy status to penicillin; Z88.5 Allergy status to narcotic agent; Z88.8 Allergy status to other drugs, medicaments and biological substances; Z79.82 Long term (current) use of aspirin; Z79.899 Other long term (current) drug therapy; Z98.890 Other specified postprocedural states; Z86.010 Personal history of colon polyps
CPT/HCPCS: 45380; 45385; 88305; J2704; J7030

== ENCOUNTER 2022-03-17 12:51 | Emergency (ER) | payer MEDICARE ==
[2022-03-17 13:16] VITALS: BP 135/78; PULSE 84
[2022-03-17] MEDS ORDERED: diazePAM 5 MG/ML MDV ONE (13:36)
== END 2022-03-17 13:44 | disposition home or self-care (01) ==
LOC: LB.ED 12:51
DX: T18.108A Unspecified foreign body in esophagus causing other injury, initial encounter (principal); K21.9 Gastro-esophageal reflux disease without esophagitis; I10 Essential (primary) hypertension; Z88.8 Allergy status to other drugs, medicaments and biological substances; Z88.6 Allergy status to analgesic agent; Z88.0 Allergy status to penicillin; Z79.899 Other long term (current) drug therapy; Z79.82 Long term (current) use of aspirin; Z90.710 Acquired absence of both cervix and uterus
CPT/HCPCS: 96372; 99283; J3360

== ENCOUNTER 2022-09-18 14:31 | Emergency (ER) | payer MEDICARE ==
[2022-09-18 14:54] VITALS: BP 129/68; PULSE 76
== END 2022-09-18 15:37 | disposition home or self-care (01) ==
LOC: LB.ED 14:31
DX: S30.0XXA Contusion of lower back and pelvis, initial encounter (principal); S70.02XA Contusion of left hip, initial encounter; E78.00 Pure hypercholesterolemia, unspecified; I10 Essential (primary) hypertension; K21.9 Gastro-esophageal reflux disease without esophagitis; Z88.0 Allergy status to penicillin; Z88.5 Allergy status to narcotic agent; Z88.8 Allergy status to other drugs, medicaments and biological substances; Z79.899 Other long term (current) drug therapy; Z87.891 Personal history of nicotine dependence; W19.XXXA Unspecified fall, initial encounter
CPT/HCPCS: 73060-LT; 73502-LT; 99283

== ENCOUNTER 2024-02-05 17:04 | Emergency (ER) | payer MEDICARE ==
[2024-02-05] MEDS: ALPRAZolam 0.25 MG Tab PO ONE (19:10)
[2024-02-05 20:13] VITALS: BP 140/80; PULSE 86
== END 2024-02-05 20:07 | disposition home or self-care (01) ==
LOC: LB.ED 17:04
DX: F41.9 Anxiety disorder, unspecified (principal); E78.00 Pure hypercholesterolemia, unspecified; I10 Essential (primary) hypertension; K21.9 Gastro-esophageal reflux disease without esophagitis; Z79.82 Long term (current) use of aspirin; Z79.899 Other long term (current) drug therapy; Z88.0 Allergy status to penicillin; Z88.5 Allergy status to narcotic agent; Z88.8 Allergy status to other drugs, medicaments and biological substances
CPT/HCPCS: 99283; A9270

== ENCOUNTER 2024-04-06 19:48 | Emergency (ER) | payer MEDICAID, MEDICARE ==
[2024-04-06] MEDS: Lidocaine 5% 700 MG Patch TOP ONE (20:37)
[2024-04-06] MEDS: Ketorolac 30 MG/ML SDV IM ONE (20:37)
[2024-04-06 22:16] VITALS: BP 98/57; PULSE 68
== END 2024-04-06 20:55 | disposition home or self-care (01) ==
LOC: LB.ED 19:48
DX: G89.29 Other chronic pain (principal); M54.9 Dorsalgia, unspecified; Z91.148 Patient's other noncompliance with medication regimen for other reason; I10 Essential (primary) hypertension; E78.00 Pure hypercholesterolemia, unspecified; K21.9 Gastro-esophageal reflux disease without esophagitis; Z90.710 Acquired absence of both cervix and uterus; Z79.899 Other long term (current) drug therapy; Z79.82 Long term (current) use of aspirin; Z79.1 Long term (current) use of non-steroidal anti-inflammatories (NSAID); Z79.891 Long term (current) use of opiate analgesic; Z79.2 Long term (current) use of antibiotics; Z88.0 Allergy status to penicillin; Z88.5 Allergy status to narcotic agent; Z88.8 Allergy status to other drugs, medicaments and biological substances
CPT/HCPCS: 96372; 99283; A9270; J1885

== ENCOUNTER 2025-03-07 08:26 | Emergency (ER) | payer MEDICARE ==
[2025-03-07] MEDS: Ketorolac 30 MG/ML SDV IM ONE (09:26)
[2025-03-07 10:26] VITALS: BP 129/68; PULSE 77
[2025-03-09] MEDS: Ketorolac 30 MG/ML SDV ONE (09:37)
== END 2025-03-07 10:26 | disposition home or self-care (01) ==
LOC: LB.ED 08:26
DX: M46.1 Sacroiliitis, not elsewhere classified (principal); R19.7 Diarrhea, unspecified; I10 Essential (primary) hypertension; E78.00 Pure hypercholesterolemia, unspecified; K21.9 Gastro-esophageal reflux disease without esophagitis; Z90.710 Acquired absence of both cervix and uterus; Z88.0 Allergy status to penicillin; Z88.5 Allergy status to narcotic agent; Z88.8 Allergy status to other drugs, medicaments and biological substances; Z79.82 Long term (current) use of aspirin; Z79.899 Other long term (current) drug therapy
CPT/HCPCS: 96372; 99284; A0425; A0428; J1885; 99283

== ENCOUNTER 2025-03-18 15:34 | Emergency (ER) | payer MEDICARE ==
[2025-03-18] MEDS: Ketorolac 30 MG/ML SDV IM ONE (16:14)
[2025-03-18 17:49] VITALS: BP 116/75; PULSE 71
== END 2025-03-18 16:20 | disposition home or self-care (01) ==
LOC: LB.ED 15:34
DX: G89.29 Other chronic pain (principal); M54.50 Low back pain, unspecified; I10 Essential (primary) hypertension; Z90.710 Acquired absence of both cervix and uterus
CPT/HCPCS: 96372; 99283; J1885